=== PATIENT | female | born 1940 | race Caucasian/White ===

== ENCOUNTER 2017-05-31 12:58 | Observation (INO) ==
[2017-05-31 13:31] LABS: Basophils % 0.4 %; Eosinophils # 0.2 K/mcL (0.0-0.6); Eosinophils % 1.9 %; Hematocrit 38.8 % (35.3-44.9); Hemoglobin 13.2 g/dL (11.5-15.4); Immature Granulocytes % 0.4 % (0-4); Lymphocytes # 2.3 K/mcL (0.6-4.6); Lymphocytes % 29.2 %; Mean Corpuscular Volume 91.1 fL (83.0-100.0); Mean Platelet Volume 9.8 fL (9.4-12.4); Monocytes # 0.5 K/mcL (0.0-1.3); Monocytes % 6.8 %; Neutrophils # 4.8 K/mcL (1.6-8.9); Platelet Count 230 K/mcL (140-400); Red Blood Count 4.26 M/mcL (3.82-4.97); Segmented Neutrophils % 61.3 %
[2017-05-31 13:37] LABS: INR 0.9; Prothrombin Time 9.6 Seconds (9.4-12.1)
[2017-05-31 13:40] LABS: Activated Partial Thrombo Time 27.3 Seconds (26.0-36.0)
[2017-05-31 13:53] LABS: BUN/Creatinine Ratio 19 (6-26); Blood Urea Nitrogen 13 mg/dL (8-23); Calcium 9.6 mg/dL (8.6-10.3); Carbon Dioxide 33 mEq/L (23-29); Chloride 96 mEq/L (98-107); Glucose 124 mg/dL (70-105); Osmolality,Calculated 284 (280-300); Potassium 3.5 mEq/L (3.5-5.1); Sodium 136 mEq/L (136-145); eGFR For African Americans > 60 (> 60); eGFR For Non-African Americans > 60 (> 60)
[2017-05-31 13:54] LABS: Troponin I 0.03 ng/mL (< 0.04)
--- NOTE | 2017-05-31 19:49 | Emergency Department Note ---
Disposition Clinical Impression: Syncope Qualifiers: Encounter type: initial encounter TIA (transient ischemic attack) Qualifiers: Transient cerebral ischemia type: unspecified Qualified Code(s): G45.9 - Transient cerebral ischemic attack, unspecified Disposition: Admitted As Inpatient Condition: Good Time of Disposition: 21:18 General Adult HPI - General Chief complaint: ED Syncope Stated complaint: "passed out,dizzy" hx stroke same symptoms Time Seen by Provider: 05/31/17 19:41 Source: patient Mode of arrival: ambulatory Limitations: no limitations Nursing Notes Reviewed: Yes Vital Signs Reviewed: Yes - History of Present Illness HPI Narrative: Patient presents to the ED with the chief complaint of syncope. Patient reports that she was feeling well today and states that she has a very large living room. She got up from the chair to walk across living room and her legs went numb and she fell. She states that she does not long she was out but woke up and was still having bilateral lower extremity tingling and left arm numbness. She states that she has had a headache the last couple of days in her occiput and top of her head. No changes in vision. She states that she does have a history of a remote right-sided CVA and this felt similar to those symptoms. She states that she came in at that time and has been in the waiting room symptoms. Her symptoms are gone now, but she states that she will still get twinges of a headache. She is on antiplatelet medications. She also has a history of CHF. No fever, chills, chest pain, shortness of breath, abdominal pain, nausea, vomiting, diarrhea, cough or rash. Pain Scale: 0 - Related Data Home Medications Medication Instructions Recorded Confirmed Cholecalciferol (Vitamin D3) 1,000 unit PO DAILY 06/24/15 05/31/17 [Vitamin D3] Ranitidine HCl [Heartburn Relief] 150 mg PO BID 06/24/15 05/31/17 Metoprolol [Lopressor] 25 mg PO DAILY 04/22/16 05/31/17 Aspirin [Lo-Dose Aspirin EC] 81 mg PO DAILY 04/23/16 05/31/17 Ferrous Sulfate [Iron] 325 mg PO DAILY 05/31/17 05/31/17 Fluticasone Propionate Nasal 50 mcg NS DAILY PRN 05/31/17 05/31/17 [Flonase] Meclizine [Antivert] 12.5 mg PO TID PRN 05/31/17 05/31/17 hydroCHLOROthiazide 12.5 mg PO DAILY 05/31/17 05/31/17 [Hydrochlorothiazide] Allergies Allergy/AdvReac Type Severity Reaction Status Date / Time Amoxicillin AdvReac Hallucinati Verified 12/06/16 09:43 ng nitrofurantoin AdvReac Cramping Verified 09/05/16 12:09 of the Muscles pseudoephedrine AdvReac Cramping Verified 09/05/16 12:09 [From Sudafed] of the Muscles red dye AdvReac Hives Verified 09/05/16 12:09 Review of Systems: As reviewed in the HPI. All other systems reviewed are negative or normal. Constitutional: Reports: as per HPI Eyes: Reports: as per HPI ENT ED: Reports: as per HPI Past Medical History - Past Medical History Attestation: Yes The following information was validated with the patient. Source: patient Medical history: Reports: non-contributory Surgical history: Reports: cholecystectomy, herniorrhaphy, hysterectomy Psychiatric history: Reports: no psych history - Social History Smoking Status: Never smoker Smokeless Tobacco Status: No Alcohol use: Reports: none Drug use: Reports: none Physical Exam - General Limitations: no limitations General appearance: alert, in no apparent distress - Head Head exam: atraumatic, normocephalic, normal inspection - Eye Eye exam: Present: normal appearance, PERRL, EOMI, other (slight R sided ptosis she states has been there ) - Neck Neck exam: Present: normal inspection, full ROM, trachea midline. Absent: tenderness - Chest Chest inspection: Present: normal inspection, symmetric chest wall rise - Respiratory Respiratory exam: Present: normal lung sounds bilaterally - Cardiovascular Cardiovascular exam: Present: regular rate, normal rhythm, normal heart sounds - Abdominal Exam Abdominal exam: Present: soft, Non-Tender. Absent: tenderness, distention, guarding, rebound, rigidity - Extremities Exam Extremities exam: Present: normal inspection, full ROM, normal capillary refill. Absent: tenderness, pedal edema - Neurological Exam Neurological exam: Present: alert, oriented X3, CN II-XII intact - Expanded Neurological Exam Patient oriented to: Present: person, place, time Speech: Present: fluid speech Cranial nerves: EOM function (II, III, IV, ): Normal, facial sensation (V): Normal, facial palsy (VII): Normal, spinal accessory function (XI): Normal, tongue deviation (XII): Normal Cerebellar function: finger to nose: Normal Motor strength - LUE: 5/5 Motor strength - RUE: 5/5 Motor strength - LLE: 5/5 Motor strength - RLE: 5/5 Upper motor neuron exam: kip neglect: Absent bilaterally Sensory exam upper extremity: light touch: Abnormal Left (dull compared to R) Sensory exam lower extremity: light touch: Normal Coma Scale Eye Opening: Spontaneous Coma Scale Motor Response: Obeys Commands Coma Scale Verbal Response: Oriented Coma Scale Total: 15 - Psychiatric Psychiatric exam: Present: normal affect, normal mood - Skin Skin exam: Present: warm, dry, intact, normal color Course Course Narrative: Patient presenting with syncope and left arm numbness. Has a history of CVA. Symptom onset was 12 PM today, so she is well outside of the window for TPA. Her NIH is 1. She states that she does have some decreased sensation in that arm. At baseline, but is a little worse than usual. We will workup and admit. Her labs had already been completed in triage and she had an unchanged EKG, normal troponin. Her chest x-ray was unremarkable. We will add on a CT head and admit for MRI and further workup for CVA versus TIA. Patient agreeable with plan - Reevaluation(s) Reevaluation #1: Head CT is unremarkable. MRI is ordered due to her onset of symptoms. Patient admitted to the hospitalist service for further workup. Time: 21:17 Vital Signs Temperature 98.1 F 05/31/17 12:59 Pulse Rate 64 05/31/17 12:59 Respiratory Rate 18 05/31/17 12:59 Blood Pressure 138/71 05/31/17 12:59 O2 Sat by Pulse Oximetry 98 05/31/17 12:59 Temperature 98.1 F 05/31/17 12:59 Pulse Rate 70 05/31/17 22:28 Respiratory Rate 16 05/31/17 22:28 Blood Pressure 147/81 05/31/17 22:28 O2 Sat by Pulse Oximetry 98 05/31/17 12:59 Oxygen Delivery Oxygen Delivery Room Air Medical Decision Making - Medical Records Medical records reviewed: Yes I reviewed the patient's medical records. - Lab Data Lab results reviewed: Yes I reviewed the patient's lab results. Result diagrams: 05/31/17 13:13 05/31/17 13:13 Lab Results 05/31/17 05/31/17 05/31/17 Range/Units 13:13 13:13 13:13 WBC 7.9 (4.3-11.1) K/mcL RBC 4.26 (3.82-4.97) M/mcL Hgb 13.2 (11.5-15.4) g/dL Hct 38.8 (35.3-44.9) % MCV 91.1 (83.0-100.0) fL MCH 31.0 (28.0-33.3) pg MCHC 34.0 (31.6-35.5) g/dL RDW 14.0 (11.5-14.5) % Plt Count 230 (140-400) K/mcL MPV 9.8 (9.4-12.4) fL Immature Gran % 0.4 (0-4) % Seg Neutrophils % 61.3 % Lymphocytes % 29.2 % Monocytes % 6.8 % Eosinophils % 1.9 % Basophils % 0.4 % Neutrophils # 4.8 (1.6-8.9) K/mcL Lymphocytes # 2.3 (0.6-4.6) K/mcL Monocytes # 0.5 (0.0-1.3) K/mcL Eosinophils # 0.2 (0.0-0.6) K/mcL Basophils # 0.0 (0.0-0.2) K/mcL PT 9.6 (9.4-12.1) Seconds INR 0.9 APTT 27.3 (26.0-36.0) Seconds Sodium 136 (136-145) mEq/L Potassium 3.5 (3.5-5.1) mEq/L Chloride 96 L (98-107) mEq/L Carbon Dioxide 33 H (23-29) mEq/L BUN 13 (8-23) mg/dL Creatinine 0.70 (0.60-1.20) mg/dL Est GFR ( Amer) > 60 (> 60) Est GFR (Non-Af Amer) > 60 (> 60) BUN/Creatinine Ratio 19 (6-26) Glucose 124 H (70-105) mg/dL Calculated Osmolality 284 (280-300) Calcium 9.6 (8.6-10.3) mg/dL Troponin I 0.03 (< 0.04) ng/mL - Radiology Data Radiology results reviewed: Yes I reviewed the patient's radiology results. Chest X-Ray 05/31/17 13:03 IMPRESSION: 1. No acute radiographic abnormality in the chest. D/ / Andres Thomas MD / Andres Thomas MD Interpreting Provider: Andres Thomas MD Head CT 05/31/17 19:48 IMPRESSION: No acute abnormality detected. D/ / Oscar Odom MD / Oscar Odom MD Interpreting Provider: Oscar Odom MD Brain MRI 05/31/17 20:11 IMPRESSION: No acute infarct. Small right frontal convexity meningioma. D/ / Raymond Bangura MD / Raymond Bangura MD Interpreting Provider: Raymond Bangura MD
[2017-05-31] MEDS ORDERED: Aspirin 325 MG TABLET PO ONE (21:01)
--- NOTE | 2017-05-31 22:28 | Emergency Department Note ---
Disposition Clinical Impression: Syncope Qualifiers: Encounter type: initial encounter TIA (transient ischemic attack) Qualifiers: Transient cerebral ischemia type: unspecified Qualified Code(s): G45.9 - Transient cerebral ischemic attack, unspecified Disposition: Admitted As Inpatient Condition: Good General Adult HPI - General Chief complaint: ED Syncope Stated complaint: "passed out,dizzy" hx stroke same symptoms Time Seen by Provider: 05/31/17 19:41 Source: patient Mode of arrival: ambulatory Limitations: no limitations Nursing Notes Reviewed: Yes Vital Signs Reviewed: Yes - History of Present Illness Pain Scale: 0 - Related Data Home Medications Medication Instructions Recorded Confirmed Cholecalciferol (Vitamin D3) 1,000 unit PO DAILY 06/24/15 05/31/17 [Vitamin D3] Ranitidine HCl [Heartburn Relief] 150 mg PO BID 06/24/15 05/31/17 Metoprolol [Lopressor] 25 mg PO DAILY 04/22/16 05/31/17 Aspirin [Lo-Dose Aspirin EC] 81 mg PO DAILY 04/23/16 05/31/17 Ferrous Sulfate [Iron] 325 mg PO DAILY 05/31/17 05/31/17 Fluticasone Propionate Nasal 50 mcg NS DAILY PRN 05/31/17 05/31/17 [Flonase] Meclizine [Antivert] 12.5 mg PO TID PRN 05/31/17 05/31/17 hydroCHLOROthiazide 12.5 mg PO DAILY 05/31/17 05/31/17 [Hydrochlorothiazide] Allergies Allergy/AdvReac Type Severity Reaction Status Date / Time Amoxicillin AdvReac Hallucinati Verified 12/06/16 09:43 ng nitrofurantoin AdvReac Cramping Verified 09/05/16 12:09 of the Muscles pseudoephedrine AdvReac Cramping Verified 09/05/16 12:09 [From Sudafed] of the Muscles red dye AdvReac Hives Verified 09/05/16 12:09 Constitutional: Reports: as per HPI Eyes: Reports: as per HPI ENT ED: Reports: as per HPI Past Medical History - Past Medical History Medical history: Reports: non-contributory Surgical history: Reports: cholecystectomy, herniorrhaphy, hysterectomy Psychiatric history: Reports: no psych history - Social History Smoking Status: Never smoker Smokeless Tobacco Status: No Alcohol use: Reports: none Drug use: Reports: none Physical Exam - General Limitations: no limitations General appearance: alert, in no apparent distress Course Vital Signs Temperature 98.1 F 05/31/17 12:59 Pulse Rate 64 05/31/17 12:59 Respiratory Rate 18 05/31/17 12:59 Blood Pressure 138/71 05/31/17 12:59 O2 Sat by Pulse Oximetry 98 05/31/17 12:59 Temperature 98.1 F 05/31/17 12:59 Pulse Rate 64 05/31/17 12:59 Respiratory Rate 18 05/31/17 12:59 Blood Pressure 138/71 05/31/17 12:59 O2 Sat by Pulse Oximetry 98 05/31/17 12:59 Oxygen Delivery Oxygen Delivery Room Air Medical Decision Making - Lab Data Result diagrams: 05/31/17 13:13 05/31/17 13:13 Lab Results 05/31/17 05/31/17 05/31/17 Range/Units 13:13 13:13 13:13 WBC 7.9 (4.3-11.1) K/mcL RBC 4.26 (3.82-4.97) M/mcL Hgb 13.2 (11.5-15.4) g/dL Hct 38.8 (35.3-44.9) % MCV 91.1 (83.0-100.0) fL MCH 31.0 (28.0-33.3) pg MCHC 34.0 (31.6-35.5) g/dL RDW 14.0 (11.5-14.5) % Plt Count 230 (140-400) K/mcL MPV 9.8 (9.4-12.4) fL Immature Gran % 0.4 (0-4) % Seg Neutrophils % 61.3 % Lymphocytes % 29.2 % Monocytes % 6.8 % Eosinophils % 1.9 % Basophils % 0.4 % Neutrophils # 4.8 (1.6-8.9) K/mcL Lymphocytes # 2.3 (0.6-4.6) K/mcL Monocytes # 0.5 (0.0-1.3) K/mcL Eosinophils # 0.2 (0.0-0.6) K/mcL Basophils # 0.0 (0.0-0.2) K/mcL PT 9.6 (9.4-12.1) Seconds INR 0.9 APTT 27.3 (26.0-36.0) Seconds Sodium 136 (136-145) mEq/L Potassium 3.5 (3.5-5.1) mEq/L Chloride 96 L (98-107) mEq/L Carbon Dioxide 33 H (23-29) mEq/L BUN 13 (8-23) mg/dL Creatinine 0.70 (0.60-1.20) mg/dL Est GFR ( Amer) > 60 (> 60) Est GFR (Non-Af Amer) > 60 (> 60) BUN/Creatinine Ratio 19 (6-26) Glucose 124 H (70-105) mg/dL Calculated Osmolality 284 (280-300) Calcium 9.6 (8.6-10.3) mg/dL Troponin I 0.03 (< 0.04) ng/mL Attestation Statement - Attestation Attestation: I, Michael Newman MD, personally evaluated this patient and discussed their management with the resident physician. I reviewed the resident's note and agree with the documented findings, medical decision making, and plan of care. 76-year-old female presents to the emergency department with a complaint of dizziness and a syncopal episode which occurred about noon today. She states she has had the dizziness for a while and about noon when she walked across her living room she just had a flash and woke up in the floor. She denies any injury from the fall. She thinks she was only out for a few seconds. No chest pain or shortness of breath or palpitations associated with the episode. After she woke up she states that she just felt like her legs would not work right and they felt weak and numb. She rubbed them and they got better. This involved both lower extremities. No involvement of the upper extremities. She was able to get up on her own and ambulate. Patient reports that she had a stroke in the past with similar symptoms. On examination patient is a well-developed well-nourished well-appearing elderly female in no acute distress. She is alert and oriented 3. There is no cyanosis or diaphoresis. Breath sounds are clear and equal bilaterally. Heart regular rate and rhythm. Abdomen is soft and nontender with normal bowel sounds. No facial droop or asymmetry. Membership Counselor strength equal bilaterally. The weakness noted. She does complain of slight tingling in her left foot and states it feels a little different to palpation from the right foot. Labs reviewed and unremarkable. Chest x-ray negative. Head CT negative. MRI shows no acute infarct. Small right frontal meningioma. EKG shows a normal sinus rhythm with ventricular rate of 60. No acute ST segment elevation or depression. No arrhythmia or ectopy. The hospitalist, Dr. Dodd, was consulted and accepted admission of the patient.
[2017-05-31] MEDS ORDERED: Naloxone 0.4 MG/ML INJ IVP PRN (23:53)
[2017-06-01] MEDS ORDERED: Acetaminophen 325 MG TABLET PO PRN (00:01)
[2017-06-01] MEDS ORDERED: Fluticasone Propionate Nasal 50 MCG/SPRAY BOTTLE NS PRN (00:04)
--- NOTE | 2017-06-01 00:55 | Internal Med History&Physical ---
Date of Encounter: 05/31/17 Time of Encounter: 22:00 Internal Medicine - H&P: HPI Chief complaint: Syncope Admitted From: Home Plans for Post Hospital Care: Home History of present illness: Ms. Martínez is a 76 year old female present to ER for syncope. Her past medical history is significant for hypertension, diabetes on diet control only, CHF, history of CVA 4 years ago. Patient said she passed out around noon time, found herself on floor. Nobody witnessed the syncope. Patient denies tongue bite. Patient denies fecal or urinary incontinence. Patient denies any injury or any pain all around body. Patient denies chest pain or nausea vomiting. Patient denies weakness, numbness , tingling, or slurred speech. Patient has chronic dizziness for about 1 month. Patient denies similar syncope previously. Patient was admitted for syncope. Past Med Surg Social Fam HX - Past Medical History Medical history: hypertension Psychiatric history: no psych history - Past Surgical History Surgical History: cholecystectomy, herniorrhaphy, hysterectomy - Social History Smoking Status: Never smoker Smokeless Tobacco Status: No Alcohol use: none Drug use: none - Family History Mother Living Status: Hx Family Cardiac Disorders: Yes Father Brother Hx Family Cardiac Disorders: Yes (heart stents) Internal Medicine - H&P: Meds Cholecalciferol (Vitamin D3) [Vitamin D3] 1,000 unit PO DAILY 06/24/15 [History] Ranitidine HCl [Heartburn Relief] 150 mg PO BID 06/24/15 [History] Metoprolol [Lopressor] 25 mg PO DAILY 04/22/16 [History] Aspirin [Lo-Dose Aspirin EC] 81 mg PO DAILY 04/23/16 [History] Ferrous Sulfate [Iron] 325 mg PO DAILY 05/31/17 [History] Fluticasone Propionate Nasal [Flonase] 50 mcg NS DAILY PRN 05/31/17 [History] Meclizine [Antivert] 12.5 mg PO TID PRN 05/31/17 [History] hydroCHLOROthiazide [Hydrochlorothiazide] 12.5 mg PO DAILY 05/31/17 [History] 3 Allergy/AdvReac Type Severity Reaction Status Date / Time Amoxicillin AdvReac Hallucinati Verified 12/06/16 09:43 ng nitrofurantoin AdvReac Cramping Verified 09/05/16 12:09 of the Muscles pseudoephedrine AdvReac Cramping Verified 09/05/16 12:09 [From Sudafed] of the Muscles red dye AdvReac Hives Verified 09/05/16 12:09 All Systems PM: A 10-system review of systems was performed and is negative for pertinent findings except as documented above in the HPI. - Constitutional Vitals: Temp Pulse Resp BP Pulse Ox 98.4 F 64 15 134/53 96 05/31/17 23:41 05/31/17 23:41 05/31/17 23:41 05/31/17 23:41 05/31/17 23:41 General appearance: Present: A&O X 3, no acute distress, answers questions appropriately - Head Head exam: Present: atraumatic, normocephalic - Eye Eye exam: Present: PERRL, conjuntiva pink, sclera anicteric Pupils: Present: PERRL - Neck Neck exam general surgery: Present: supple, trachea midline. Absent: lymphadenopathy - Respiratory Respiratory exam: Present: CTAB. Absent: accessory muscle use, rales, rhonchi, wheezes - Cardiovascular Cardiovascular exam: Present: RRR, +S1, +S2. Absent: diastolic murmur, gallop, rubs, systolic murmur - GI/Abdominal GI/Abdominal exam: Present: normal bowel sounds, soft, no peritoneal signs. Absent: distended, tenderness - Extremities Exam Extremities exam: Present: warm, radial pulses palpable and symmetrical. Absent : calf tenderness, cyanotic, pedal edema - Neurological Exam Neurological exam: Present: CN II-XII intact, oriented X3, no focal deficits. Absent: pronater drift, facial droop, speech deficit - Skin Skin exam: Present: dry, intact Internal Med - H&P Results - Labs CBC & Chem 7: 05/31/17 13:13 05/31/17 13:13 - Assessment and plan (1) Meningioma Current Visit: Yes Status: Acute Assessment and plan: MRI brain shows meningioma. Review her old chart, she seems already have one 2 years ago. Will consult neurology for further management. (2) DVT prophylaxis Current Visit: Yes Status: Acute Assessment and plan: Heparin subcutaneously (3) Diabetes mellitus Current Visit: No Status: Acute Qualifiers: Diabetes mellitus type: type 2 Diabetes mellitus intermodal owner operator truck driver insulin use: without intermodal owner operator truck driver use Diabetes mellitus complication status: without complication Qualified Code(s): E11.9 - Type 2 diabetes mellitus without complications (4) HTN (hypertension) Current Visit: No Status: Acute Assessment and plan: Continue home medications Qualifiers: Hypertension type: essential hypertension Qualified Code(s): I10 - Essential (primary) hypertension (5) Syncope Current Visit: Yes Status: Acute Assessment and plan: Etiology is undetermined. Need to rule out cardio/neuro etiology. - Continuous cardiac monitoring to rule out arrhythmia - Echo and duplex carotid - Orthostatic vitals - Neurology consult as patient was found meningioma by MRI Qualifiers: Syncope type: unspecified Qualified Code(s): R55 - Syncope and collapse - Time Spent With Patient Total time spent is greater than 50% in coordination of care (as documented) at patient's floor/unit and/or counseling patient: 40 minutes Greater than 35 minutes
[2017-06-01] MEDS: *HR* Heparin 5,000 UNIT/ML VIAL SQ SCH ×2 (05:04→17:18)
[2017-06-01 07:04] LABS: Bilirubin,Urine Negative (Negative); Blood,Urine Trace (Negative); Clarity,Urine Cloudy (Clear); Color,Urine Yellow (Yellow); Glucose,Urine (UA) Normal (Normal); Ketones,Urine Negative (Negative); Leukocyte Esterase,Urine Large (Negative); Nitrite,Urine Positive (Negative); Protein,Urine Negative (Neg-Trace); Specific Gravity,Urine 1.008 (1.010-1.025); Urobilinogen,Urine Normal (Normal)
[2017-06-01 07:07] LABS: Bacteria,Urine Many per hpf (None-Few); Hyaline Casts,Urine None Seen per lpf (None-Few); Squamous Epithelial Cell,Urine Moderate per lpf (None-Few); WBC,Urine TNTC per hpf (0-3)
--- NOTE | 2017-06-01 07:17 | Electrocardiograph Report ---
[facility] [employer] Test Date: 2017-05-31 Pat Name: Shante Martínez Department: 104 Room: 2S3 Gender: F Trouble Lineman: TMTracie : 1940 Requested By: Hu Lynn Order Number: [id number] Reading MD: Fozia Montemayor Measurements Intervals Counselor Rate: 60 P: 43 ID: [id number] QRS: -21 QRSD: 97 T: 11 QT: 419 QTc: 420 Interpretive Statements SINUS RHYTHM BORDERLINE LEFT AXIS DEVIATION MODERATE VOLTAGE CRITERIA FOR LVH, CONSIDER NORMAL VARIANT Electronically Signed On 06-01-2017 7:16:36 EDT by Fozia Montemayor
[2017-06-01 08:06] LABS: Basophils % 0.4 %; Eosinophils # 0.2 K/mcL (0.0-0.6); Hematocrit 36.6 % (35.3-44.9); Hemoglobin 12.5 g/dL (11.5-15.4); Immature Granulocytes % 0.2 % (0-4); Immature Platelets 2.9 % (1.1-6.1); Lymphocytes # 1.6 K/mcL (0.6-4.6); Lymphocytes % 28.6 %; Mean Corpuscular HGB Conc 34.2 g/dL (31.6-35.5); Mean Corpuscular Hemoglobin 30.7 pg (28.0-33.3); Mean Corpuscular Volume 89.9 fL (83.0-100.0); Mean Platelet Volume 9.8 fL (9.4-12.4); Monocytes # 0.4 K/mcL (0.0-1.3); Monocytes % 7.1 %; Neutrophils # 3.4 K/mcL (1.6-8.9); Platelet Count 192 K/mcL (140-400); Red Blood Count 4.07 M/mcL (3.82-4.97); Segmented Neutrophils % 60.7 %
[2017-06-01 09:43] LABS: BUN/Creatinine Ratio 17 (6-26); Blood Urea Nitrogen 11 mg/dL (8-23); Calcium 9.3 mg/dL (8.6-10.3); Carbon Dioxide 30 mEq/L (23-29); Chloride 103 mEq/L (98-107); Glucose 110 mg/dL (70-105); Osmolality,Calculated 280 (280-300); Potassium 3.3 mEq/L (3.5-5.1); Sodium 135 mEq/L (136-145); eGFR For African Americans > 60 (> 60); eGFR For Non-African Americans > 60 (> 60)
[2017-06-01] MEDS: Famotidine 20 MG TABLET PO SCH ×2 (10:08→21:47)
[2017-06-01] MEDS: Aspirin Enteric Coated 81 MG Tablet PO SCH (10:08)
--- NOTE | 2017-06-01 14:17 | Internal Med Progress Note ---
Date of Encounter: 06/01/17 Time of Encounter: 02:15 - Assessment and plan (1) Syncope Current Visit: Yes Status: Acute Assessment and plan: Patient reports prior history of palpitations but denies any palpitations at the time of the event. Seizure is unlikely based on history. Stroke was ruled out with negative MRI. Although she has a frontal lobe meningioma this is likely unlikely to cause syncope. She does endorse prior history of heart failure but her echo in 2017 was normal. A nuclear stress test was performed in 2017 which was negative. We discussed the prognosis of this meningioma with neurology and they agreed that it is unlikely to cause this presentation. Overall, arrhythmia has not been ruled out. Vestibular disease is also possible especially with a reported dizziness. We will consult cardiac cardiology for their opinion and likely an outpatient Holter monitor. Neurology was already consulted. Qualifiers: Syncope type: unspecified Qualified Code(s): R55 - Syncope and collapse (2) Meningioma Current Visit: Yes Status: Acute Assessment and plan: We will follow with neurology outpatient (3) HTN (hypertension) Current Visit: No Status: Acute Assessment and plan: Continue home medications Qualifiers: Hypertension type: essential hypertension Qualified Code(s): I10 - Essential (primary) hypertension (4) Diabetes mellitus Current Visit: No Status: Acute Qualifiers: Diabetes mellitus type: type 2 Diabetes mellitus mcfp insulin use: without mcfp use Diabetes mellitus complication status: without complication Qualified Code(s): E11.9 - Type 2 diabetes mellitus without complications (5) DVT prophylaxis Current Visit: Yes Status: Acute - Time Spent With Patient Total time spent is greater than 50% in coordination of care (as documented) at patient's floor/unit and/or counseling patient: 25 - 35 minutes - Subjective Interval history: Patient reports dizziness on moving her head but no other focal neurological complaints. No interval ligaments noted since admission. No interval events on telemetry. - Constitutional Vitals: Temp Pulse Resp BP Pulse Ox 97.4 F L 73 17 121/57 100 06/01/17 10:35 06/01/17 10:35 06/01/17 10:35 06/01/17 10:35 06/01/17 10:35 General appearance: Present: A&O X 3, no acute distress, answers questions appropriately Exam: Physical exam Gen: Comfortable, laying in bed, in no visible distress HEENT: Normocephalic, atraumatic. No conjunctival icterus. Moist oral mucosa. Neck: Supple Lungs: Clear to auscultation, no foreign sounds Heart: Normal S1-S2, no murmurs rubs or gallops Abdomen: Normoactive bowel sounds, no guarding rigidity or tenderness Extremities: No edema clubbing or cyanosis Neuro: Alert oriented 3, no focal deficits. Extraocular movements are intact. Prince of vision are intact. No motor or sensory deficits. Negative finger- nose test. Gait was not tested. Skin: No skin lesions Internal Medicine: Result - Labs CBC & Chem 7: 06/01/17 07:26 06/01/17 07:26 Labs: Short CBC 06/01/17 Range/Units 07:26 WBC 5.6 (4.3-11.1) K/mcL Hgb 12.5 (11.5-15.4) g/dL Hct 36.6 (35.3-44.9) % Plt Count 192 (140-400) K/mcL Neutrophils # 3.4 (1.6-8.9) K/mcL BMP 06/01/17 07:26 Sodium 135 L Potassium 3.3 L Chloride 103 Carbon Dioxide 30 H BUN 11 Creatinine 0.65 Glucose 110 H Calcium 9.3 Urine 06/01/17 Range/Units 06:40 Urine Color Yellow (Yellow) Urine Clarity Cloudy A (Clear) Urine pH 7.0 (5.0-8.0) pH Units Ur Specific [place] 1.008 L (1.010-1.025) Urine Protein Negative (Neg-Trace) mg/dL Urine Glucose (UA) Normal (Normal) mg/dL - ABG Interpretation ABG results: PT/INR, D-dimer PT 9.6 Seconds (9.4-12.1) 05/31/17 13:13 Consult Discharge Plan - Plan Referrals: Erinn Dailey, [employer]ANCH MANAGER TRAINEE [Primary Care Provider] -
[2017-06-01] MEDS: hydroCHLOROthiazide 25 MG TABLET PO SCH (15:59)
[2017-06-01] MEDS: Cholecalciferol (D-3) 1,000 UNIT TABLET PO SCH (16:00)
[2017-06-02] MEDS: *HR* Heparin 5,000 UNIT/ML VIAL SQ SCH (05:33)
[2017-06-02] MEDS: Aspirin Enteric Coated 81 MG Tablet PO SCH (08:14)
[2017-06-02] MEDS: Cholecalciferol (D-3) 1,000 UNIT TABLET PO SCH (08:14)
[2017-06-02] MEDS: hydroCHLOROthiazide 25 MG TABLET PO SCH (08:14)
[2017-06-02] MEDS: Famotidine 20 MG TABLET PO SCH (08:14)
--- NOTE | 2017-06-02 11:12 | Neurology - Consult Note ---
Date of Encounter: 06/09/17 Time of Encounter: 11:09 Assessment and Plan (1) Syncope Status: Acute Patient seems to have an episode of cardiogenic syncope though seizures are in the differential but description does not seem to be typical off a seizure especially no postictal states she seemed to be back to her baseline now no focal deficit on examination strongly recommend cardiac workup and cardiogenic Cause of the syncope especially for any cardiac dysrhythmia. Though we could do an EEG but does not think that will be helpful in this case also suggested check carotid and vertebrals for any critical stenosis. Would not recommend starting on any antiepileptic medication at this time in particularly no evidence of seizure. Also suggested check for other metabolic and infectious etiologies at this age group simple infections like UTI could have a similar presentation. 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 Likely a meningioma. Seems to be quite a small and does not causing any mass effect or any edema around it. Likely incidental finding do not think that it is a reason for her syncopal episode though at times meningioma can cause increase in the seizures but this seems to be too small and also in the posterior fossa regardless recommend radiological follow-up in about a year with repeat imaging studies patient could be follow-up in neurology clinic afterwards At this time does not require any intervention . History of Present Illness HPI: Ms. Martínez is a 76 year old female admitted via ER for syncope. 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 Nobody witnessed the episode, denies any jerking and shaking, any tongue bite, or incontinence, denies any injury or any pain in the body. no focla motor weakness, numbness, tingling, or slurred speech. Patient has dizziness for about 1 month. Patient denies similar syncope previously. Patient was admitted for syncope, during the workup she had an MRI of the brain that did not show any acute abnormality but did show an evidence of a small meningioma neurology service consulted for meningioma as well as for syncope. Patient seems to be back to her baseline now Past Med Surg Social Fam HX - Past Medical History Medical history: hypertension Psychiatric history: no psych history - Past Surgical History Surgical History: cholecystectomy, herniorrhaphy, hysterectomy - Social History Smoking Status: Never smoker Smokeless Tobacco Status: No Alcohol use: none Drug use: none - Family History Mother Living Status: Hx Family Cardiac Disorders: Yes Father Brother Hx Family Cardiac Disorders: Yes (heart stents) Medications and Allergies Cholecalciferol (Vitamin D3) [Vitamin D3] 1,000 unit PO DAILY 06/24/15 [History] Ranitidine HCl [Heartburn Relief] 150 mg PO BID 06/24/15 [History] Metoprolol [Lopressor] 25 mg PO DAILY 04/22/16 [History] Aspirin [Lo-Dose Aspirin EC] 81 mg PO DAILY 04/23/16 [History] Ferrous Sulfate [Iron] 325 mg PO DAILY 05/31/17 [History] Fluticasone Propionate Nasal [Flonase] 50 mcg NS DAILY PRN 05/31/17 [History] Meclizine [Antivert] 12.5 mg PO TID PRN 05/31/17 [History] hydroCHLOROthiazide [Hydrochlorothiazide] 12.5 mg PO DAILY 05/31/17 [History] 3 Allergy/AdvReac Type Severity Reaction Status Date / Time Amoxicillin AdvReac Hallucinati Verified 12/06/16 09:43 ng nitrofurantoin AdvReac Cramping Verified 09/05/16 12:09 of the Muscles pseudoephedrine AdvReac Cramping Verified 09/05/16 12:09 [From Sudafed] of the Muscles red dye AdvReac Hives Verified 09/05/16 12:09 All Systems: The remainder of the systems were reviewed and are negative Physical Examination - Vital Signs Vital Signs: Initial Vital Signs Temp Pulse Resp BP Pulse Ox 98.1 F 64 18 138/71 98 05/31/17 12:59 05/31/17 12:59 05/31/17 12:59 05/31/17 12:59 05/31/17 12:59 - Exam Exam: GENERAL: Comfortable in no acute distress HEENT: Normal LUNGS: CTA HEART: RRR, S1 S2 Audible, no murmur EXTREMITIES: No Pedal edema. DETAILED NEUROLOGICAL EXAMINATION: MENTAL STATUS: Oriented to person, place, date and situation. Memory: knows the President, Aware of recent events Recent Memory Intact Cranial Nerve Examination: CN - II: Visual Acuity, Field of Vision Normal, Fundus examination: No disk edema, Pupils- size shape reaction to light and accommodation: All normal. CN III, IV, : External ocular movements were intact, Pupils were reactive, Nodrooping of the eyelids CN V: Sensation over the face to light touch and pinprick all normal. Corneal reflexes not tested, jaw jerk normal. CN VII: No facial asymmetry, no flattening of nasolabial folds, no difficulty in closing the eyes, no loss of forehead wrinkles, no difficulty in eye-closure, frowning raising eyebrows. CNVIII: No significant hearing loss CN IX, X: Uvula centralized not deviated, Gag reflex: Not tested CN X1: Sternocleidomastoid, trapezius, normal or evidence of any weakness. CN X11: No Dysarthria, no wasting or fibrilation f tongue muscles, no deviation, tongue muscle strength normal. Motor examination: No hypertrophy, tone was normal, power grade 0-5 Upper limbs Proximal- No difficulty in lifting the arms above the head. Distal- Noweakness in distal muscles On formal testing 5/5 all over Lower limbs Proximal- No difficulty in getting up from the sitting position Distal- No difficulty in walking On formal testing 5/5 all over Coordination: [id number] normal. Target pursuit normal finger tapping normal, Rapid alternating moment of wrist normal Sensory system: Superficial sensations- Touch normal. Pain- Pinprick, Temperature all normal, Deep sensation normal, Joint position sense normal. Cortical sensation, Tactile discrimination, localization and extinction all normal. Deep tendon reflexes. Symmetrical bilateral, No evidence of Babinski. No sign of meningeal irritation Gait Examination: Deferred Results - Laboratory Findings CBC and BMP: 06/01/17 07:26 06/01/17 07:26 Abnormal lab findings: Abnormal lab results Sodium 135 mEq/L (136-145) L 06/01/17 07:26 Potassium 3.3 mEq/L (3.5-5.1) L 06/01/17 07:26 Carbon Dioxide 30 mEq/L (23-29) H 06/01/17 07:26 Glucose 110 mg/dL (70-105) H 06/01/17 07:26 POC Glucose 156 mg/dL (70-99) H 06/01/17 19:24 Troponin I 0.04 ng/mL (< 0.04) H* 06/01/17 15:42 Urine Clarity Cloudy (Clear) A 06/01/17 06:40 Ur Specific [place] 1.008 (1.010-1.025) L 06/01/17 06:40 Urine Blood Trace (Negative) H 06/01/17 06:40 Urine Nitrite Positive (Negative) A 06/01/17 06:40 Ur Leukocyte Esterase Large (Negative) H 06/01/17 06:40 Urine Microscopic RBC 3-5 per hpf (0-3) H 06/01/17 06:40 Urine Microscopic WBC TNTC per hpf (0-3) H 06/01/17 06:40 Ur Squamous Epith Cells Moderate per lpf (None-Few) H 06/01/17 06:40 Urine Bacteria Many per hpf (None-Few) H 06/01/17 06:40 Ur Culture Indicated? YES (NO) A 06/01/17 06:40 - Diagnostic Findings US - pelvic: pending Additional findings: MRI of the brain shows A small extra-axial mass over the right frontal convexity measuring up to 12.5 mm in diameter , likely a meningioma. Consult Discharge Plan - Plan Instructions: Transient Ischemic Attack (DC), Syncope (DC) Additional Instructions: Please follow-up with your seaming inspector, i.e. Dr. Vaughn within the next 1-2 weeks. Please follow with your primary care provider within the next 2 weeks. If symptoms recur, reported to the emergency room immediately and call 911. Referrals: Erinn Dailey CNP [Primary Care Provider] - (An appointment has been requested. The office will contact you at home to schedule appointment. ) Marquis Vaughn MD [Partnered Physician] - (An appointment has been requested. The office will contact you at home to schedule your appointment. ) Vaibhav Mendez MD [Partnered Physician] - 06/13/17 3:30 pm
[2017-06-02 11:47] VITALS: BP 142/77
--- NOTE | 2017-06-02 12:24 | Discharge Summary ---
- NOTES TO OUTPATIENT PROVIDER Notes to Outpatient Provider: Follow-up with Dr. Vaughn within 2 weeks of discharge Orders not resulted at time of discharge: Pending orders 06/01/17 06:40 Culture,Urine [RM] Stat 06/02/17 12:14 Troponin I Stat ECG 12 lead ECG [ECG] Stat 06/03/17 04:00 BMP [Basic Metabolic Panel] AM 0400 CBC [Complete Blood Count] [HEME] AM 0400 Date of Encounter: 06/02/17 Time of Encounter: 12:20 - Discharge Diagnosis (1) Syncope Priority: Primary Status: Acute Comments: Suspect cardiovascular etiology. During this admission including EKG and troponin, CT head, MRI did not reveal a cause of syncope. An echo was performed with results pending. Incidental note of frontal lobe meningioma was made on the MRI which is too small to cause this presentation. Neurology agrees. There is no history suggestive of seizures. She will follow-up with Dr. Vaughn her outpatient user experience team lead for a Holter study. Qualifiers: Qualified Code(s): R55 - Syncope and collapse (2) Meningioma Priority: Secondary Status: Acute Comments: Repeat MRI in 1 year (3) HTN (hypertension) Priority: Secondary Status: Chronic Qualifiers: Hypertension type: essential hypertension Qualified Code(s): I10 - Essential (primary) hypertension (4) Diabetes mellitus Priority: Secondary Status: Chronic Qualifiers: Diabetes mellitus type: type 2 Diabetes mellitus residential insulin use: without residential use Diabetes mellitus complication status: without complication Qualified Code(s): E11.9 - Type 2 diabetes mellitus without complications Hospital course: Ms. Martínez is a 76 year old female Discharge discussed with: patient - Time Spent with Patient Total time spent providing and/or coordinating discharge services: Greater than 30 minutes - Discharge Medications Home Medications: Cholecalciferol (Vitamin D3) [Vitamin D3] 1,000 unit PO DAILY 06/24/15 [History] Ranitidine HCl [Heartburn Relief] 150 mg PO BID 06/24/15 [History] Metoprolol [Lopressor] 25 mg PO DAILY 04/22/16 [History] Aspirin [Lo-Dose Aspirin EC] 81 mg PO DAILY 04/23/16 [History] Ferrous Sulfate [Iron] 325 mg PO DAILY 05/31/17 [History] Fluticasone Propionate Nasal [Flonase] 50 mcg NS DAILY PRN 05/31/17 [History] Meclizine [Antivert] 12.5 mg PO TID PRN 05/31/17 [History] hydroCHLOROthiazide [Hydrochlorothiazide] 12.5 mg PO DAILY 05/31/17 [History] Allergies/Adverse Reactions: 3 Allergy/AdvReac Type Severity Reaction Status Date / Time Amoxicillin AdvReac Hallucinati Verified 12/06/16 09:43 ng nitrofurantoin AdvReac Cramping Verified 09/05/16 12:09 of the Muscles pseudoephedrine AdvReac Cramping Verified 09/05/16 12:09 [From Sudafed] of the Muscles red dye AdvReac Hives Verified 09/05/16 12:09 Date of admission: 05/31/17 22:11 Primary care physician: Erinn Dailey CNP Consults: 06/01/17 00:05 Consult to Neurology [CONS] Routine Consulting Provider: [facility] Reason for Consult: Dizziness, syncope, MRI shows meningioma Call Completed: No 06/01/17 14:26 Consult to Cardiology [CONS] Routine Comment: Consulting Provider: [facility] Reason for Consult: Syncope at home Call Completed: No Discharging clinician: Shira Barr Anticipated date of discharge: 06/02/17 - Constitutional Vitals: Temp Pulse Resp BP Pulse Ox 98.0 F 74 16 142/77 95 06/02/17 11:43 06/02/17 11:43 06/02/17 11:43 06/02/17 11:43 06/02/17 11:43 General appearance: Present: A&O X 3, no acute distress, answers questions appropriately Exam: Gen: Comfortable, laying in bed, in no visible distress HEENT: Normocephalic, atraumatic. No conjunctival icterus. Moist oral mucosa. Neck: Supple Lungs: Clear to auscultation, no foreign sounds Heart: Normal S1-S2, no murmurs rubs or gallops Abdomen: Normoactive bowel sounds, no guarding rigidity or tenderness Extremities: No edema clubbing or cyanosis Neuro: Alert oriented 3, no focal deficits. Extraocular movements are intact. Prince of vision are intact. No motor or sensory deficits. Negative finger- nose test. Gait was not tested. Skin: No skin lesions - Patient Status Disposition: Home, Self-Care Functional capacity at discharge: independent ambulation Overall status at discharge: patient is back to baseline - Discharge Instructions Follow Up With: Erinn Dailey, ENVIRONMENTAL SERVICES SUPERVISOR [Primary Care Provider] - Additional Instructions: Please follow-up with your user experience team lead, i.e. Dr. Vaughn within the next 1-2 weeks. Please follow with your primary care provider within the next 2 weeks. If symptoms recur, reported to the emergency room immediately and call 911. - Diet and Activity Activity: resume usual activities as tolerated Diet: advance to your usual diet
== END 2017-06-02 14:15 | disposition home or self-care (01) ==
LOC: EMEROO 12:58 → 2SOUTHHOLD 12:58 → 3BNU 06-01 18:44
PROVIDERS: ADMIT Internal Medicine; ATTEND Registered Nurse

== ENCOUNTER 2019-06-08 17:35 | Observation (INO) ==
[2019-06-08 18:04] LABS: Prothrombin Time 11.8 Seconds (9.4-12.1)
[2019-06-08 18:06] LABS: Basophils % 0.5 %; Eosinophils # 0.1 K/mcL (0.0-0.6); Eosinophils % 1.2 %; Hematocrit 39.3 % (35.3-44.9); Hemoglobin 13.3 g/dL (11.5-15.4); Immature Granulocytes % 0.3 % (0-4); Lymphocytes # 1.7 K/mcL (0.6-4.6); Lymphocytes % 25.3 %; Mean Corpuscular HGB Conc 33.8 g/dL (31.6-35.5); Mean Corpuscular Volume 94.7 fL (83.0-100.0); Monocytes # 0.4 K/mcL (0.0-1.3); Monocytes % 6.1 %; Neutrophils # 4.4 K/mcL (1.6-8.9); Platelet Count 220 K/mcL (140-400); Red Blood Count 4.15 M/mcL (3.82-4.97); Red Cell Distribution Width 13.3 % (11.5-14.5); Segmented Neutrophils % 66.6 %; White Blood Count 6.6 K/mcL (4.3-11.1)
[2019-06-08 18:22] LABS: Troponin I < 0.03 ng/mL (< 0.04)
[2019-06-08 18:23] LABS: Alanine Aminotransferase 15 Units/L (7-52); Albumin 4.3 g/dL (3.5-5.7); Albumin/Globulin Ratio 1.6 (1.1-2.2); Alkaline Phosphatase 75 Units/L (34-104); Aspartate Amino Transferase 17 Units/L (13-39); BUN/Creatinine Ratio 23 (6-26); Bilirubin,Direct 0.1 mg/dL (0.0-0.2); Bilirubin,Indirect 0.5 mg/dL (0.0-1.0); Bilirubin,Total 0.6 mg/dL (0.3-1.0); Blood Urea Nitrogen 20 mg/dL (8-23); Calcium 9.9 mg/dL (8.6-10.3); Carbon Dioxide 28 mEq/L (23-29); Chloride 96 mEq/L (98-107); Globulin 2.7 g/dL (2.4-3.5); Glucose 262 mg/dL (70-105); Magnesium 1.7 mg/dL (1.6-2.6); Osmolality,Calculated 288 (280-300); Potassium 3.4 mEq/L (3.5-5.1); Sodium 133 mEq/L (136-145); eGFR For African Americans > 60 (> 60); eGFR For Non-African Americans > 60 (> 60)
[2019-06-08] MEDS ORDERED: Aspirin 81 MG TAB.CHEW PO ONE (19:27)
[2019-06-08] MEDS ORDERED: Naloxone 0.4 MG/ML INJ IVP PRN (19:36)
[2019-06-08 20:03] LABS: Bacteria,Urine Many per hpf (None-Few); Bilirubin,Urine Negative (Negative); Blood,Urine Trace (Negative); Clarity,Urine Cloudy (Clear); Color,Urine Yellow (Yellow); Glucose,Urine (UA) 100 mg/dL (Normal); Hyaline Casts,Urine None Seen per lpf (None-Few); Ketones,Urine Negative (Negative); Leukocyte Esterase,Urine Large (Negative); Nitrite,Urine Positive (Negative); Protein,Urine Negative (Neg-Trace); RBC,Urine 0-3 per hpf (0-3); Specific Gravity,Urine 1.011 (1.010-1.025); Squamous Epithelial Cell,Urine None Seen per lpf (None-Few); Urobilinogen,Urine Normal (Normal); WBC,Urine TNTC per hpf (0-3)
[2019-06-09] MEDS ORDERED: Acetaminophen 325 MG TABLET PO ONE (00:24)
[2019-06-09 01:11] LABS: Basophils % 0.3 %; Eosinophils # 0.2 K/mcL (0.0-0.6); Eosinophils % 2.5 %; Hematocrit 38.2 % (35.3-44.9); Hemoglobin 12.9 g/dL (11.5-15.4); Immature Granulocytes % 0.3 % (0-4); Lymphocytes # 2.6 K/mcL (0.6-4.6); Lymphocytes % 35.8 %; Mean Corpuscular HGB Conc 33.8 g/dL (31.6-35.5); Mean Corpuscular Hemoglobin 32.3 pg (28.0-33.3); Mean Corpuscular Volume 95.5 fL (83.0-100.0); Mean Platelet Volume 10.2 fL (9.4-12.4); Monocytes # 0.5 K/mcL (0.0-1.3); Monocytes % 7.1 %; Neutrophils # 3.9 K/mcL (1.6-8.9); Platelet Count 215 K/mcL (140-400); Red Cell Distribution Width 13.2 % (11.5-14.5); White Blood Count 7.2 K/mcL (4.3-11.1)
[2019-06-09 01:28] LABS: BUN/Creatinine Ratio 19 (6-26); Blood Urea Nitrogen 20 mg/dL (8-23); Calcium 9.5 mg/dL (8.6-10.3); Carbon Dioxide 29 mEq/L (23-29); Chloride 97 mEq/L (98-107); Glucose 229 mg/dL (70-105); Osmolality,Calculated 288 (280-300); Potassium 3.1 mEq/L (3.5-5.1); Sodium 134 mEq/L (136-145); eGFR For African Americans > 60 (> 60); eGFR For Non-African Americans 50 (> 60)
[2019-06-09 06:41] VITALS: BP 93/57
[2019-06-09] MEDS ORDERED: Dextrose Gel 15 GM/37.5 ML TUBE PO PRN ×2 (08:14)
[2019-06-09] MEDS ORDERED: *HR* Dextrose 50 % in Water (Syg) 50 ML SYRINGE IVP PRN (08:14)
[2019-06-09] MEDS ORDERED: D5% in Water 1,000 ML IVC PRN (08:14)
[2019-06-09 08:53] LABS: Estimated Average Glucose 148 mg/dl
[2019-06-09] MEDS ORDERED: cefTRIAXone 1,000 MG in 0.9 % Sodium Chloride Mini Bag 100 ML IVPB SCH (09:00)
[2019-06-09] MEDS ORDERED: Aspirin Enteric Coated 81 MG Tablet PO SCH (09:00)
[2019-06-09] MEDS ORDERED: Insulin LISPRO 300 UNITS/3 ML VIAL SQ SCH ×2 (11:30→21:00)
[2019-06-09] MEDS ORDERED: *HR* Heparin 5,000 UNIT/ML VIAL SQ SCH (18:00)
== END 2019-06-09 11:01 | disposition home or self-care (01) ==
LOC: 3BNU 17:35 → EMEROOARM 17:35 → 3BNU 20:28
PROVIDERS: ADMIT Internal Medicine; ATTEND Internal Medicine

== ENCOUNTER 2019-08-26 14:39 | Observation (INO) ==
[2019-08-26 15:49] LABS: Basophils % 0.1 %; Eosinophils # 0.1 K/mcL (0.0-0.6); Eosinophils % 0.7 %; Hematocrit 38.5 % (35.3-44.9); Hemoglobin 12.9 g/dL (11.5-15.4); Immature Granulocytes % 0.4 % (0-4); Lymphocytes # 1.9 K/mcL (0.6-4.6); Lymphocytes % 23.1 %; Mean Corpuscular HGB Conc 33.5 g/dL (31.6-35.5); Mean Corpuscular Hemoglobin 31.9 pg (28.0-33.3); Mean Corpuscular Volume 95.3 fL (83.0-100.0); Mean Platelet Volume 9.6 fL (9.4-12.4); Monocytes # 0.5 K/mcL (0.0-1.3); Monocytes % 5.7 %; Neutrophils # 5.7 K/mcL (1.6-8.9); Platelet Count 196 K/mcL (140-400); Red Blood Count 4.04 M/mcL (3.82-4.97); Red Cell Distribution Width 13.5 % (11.5-14.5); White Blood Count 8.1 K/mcL (4.3-11.1)
[2019-08-26 15:54] LABS: Prothrombin Time 11.5 Seconds (9.4-12.1)
[2019-08-26 15:57] LABS: Activated Partial Thrombo Time 29.1 Seconds (26.0-36.0)
[2019-08-26 16:10] LABS: Alanine Aminotransferase 14 Units/L (7-52); Albumin 3.9 g/dL (3.5-5.7); Albumin/Globulin Ratio 1.4 (1.1-2.2); Alkaline Phosphatase 69 Units/L (34-104); Aspartate Amino Transferase 12 Units/L (13-39); BUN/Creatinine Ratio 15 (6-26); Bilirubin,Direct 0.1 mg/dL (0.0-0.2); Bilirubin,Indirect 0.6 mg/dL (0.0-1.0); Bilirubin,Total 0.7 mg/dL (0.3-1.0); Blood Urea Nitrogen 13 mg/dL (8-23); Calcium 9.2 mg/dL (8.6-10.3); Carbon Dioxide 29 mEq/L (23-29); Chloride 101 mEq/L (98-107); Globulin 2.7 g/dL (2.4-3.5); Glucose 178 mg/dL (70-105); Osmolality,Calculated 287 (280-300); Potassium 4.1 mEq/L (3.5-5.1); Sodium 136 mEq/L (136-145); Total Protein 6.6 g/dL (6.4-8.9); Troponin I 0.03 ng/mL (< 0.04); eGFR For African Americans > 60 (> 60); eGFR For Non-African Americans > 60 (> 60)
[2019-08-26 16:24] LABS: Thyroid Stimulating Hormone 1.123 mcIU/mL (0.340-5.600)
[2019-08-26] MEDS: DilTIAZem 50 MG/50 ML IV.SOLN IVC SCH ×2 (16:40→23:08)
[2019-08-26] MEDS ORDERED: Naloxone 0.4 MG/ML INJ IVP PRN (17:58)
[2019-08-26] MEDS ORDERED: *HR* Dextrose 50 % in Water (Vial) 50 ML VIAL IVP PRN (18:55)
[2019-08-26] MEDS ORDERED: D5% in Water 1,000 ML IVC PRN (18:55)
[2019-08-26] MEDS ORDERED: Dextrose Gel 15 GM/37.5 ML TUBE PO PRN ×2 (18:55)
[2019-08-26 19:47] LABS: Estimated Average Glucose 143 mg/dl
[2019-08-26] MEDS: Pantoprazole 40 MG VIAL IVP SCH (21:19)
[2019-08-26] MEDS: Insulin LISPRO 300 UNITS/3 ML VIAL SQ SCH (21:20)
[2019-08-27 06:44] LABS: Basophils % 0.2 %; Eosinophils # 0.1 K/mcL (0.0-0.6); Eosinophils % 2.1 %; Hematocrit 36.1 % (35.3-44.9); Hemoglobin 12.1 g/dL (11.5-15.4); Immature Granulocytes % 0.2 % (0-4); Lymphocytes % 32.5 %; Mean Corpuscular HGB Conc 33.5 g/dL (31.6-35.5); Mean Corpuscular Hemoglobin 32.9 pg (28.0-33.3); Mean Corpuscular Volume 98.1 fL (83.0-100.0); Mean Platelet Volume 9.9 fL (9.4-12.4); Monocytes # 0.4 K/mcL (0.0-1.3); Monocytes % 6.9 %; Neutrophils # 3.6 K/mcL (1.6-8.9); Platelet Count 190 K/mcL (140-400); Red Blood Count 3.68 M/mcL (3.82-4.97); Red Cell Distribution Width 13.5 % (11.5-14.5); Segmented Neutrophils % 58.1 %; White Blood Count 6.3 K/mcL (4.3-11.1)
[2019-08-27 07:04] LABS: BUN/Creatinine Ratio 21 (6-26); Blood Urea Nitrogen 16 mg/dL (8-23); Calcium 8.7 mg/dL (8.6-10.3); Carbon Dioxide 28 mEq/L (23-29); Chloride 107 mEq/L (98-107); Glucose 137 mg/dL (70-105); Osmolality,Calculated 293 (280-300); Potassium 3.6 mEq/L (3.5-5.1); Sodium 140 mEq/L (136-145); eGFR For African Americans > 60 (> 60); eGFR For Non-African Americans > 60 (> 60)
[2019-08-27] MEDS: Insulin LISPRO 300 UNITS/3 ML VIAL SQ SCH ×4 (08:18→21:26)
[2019-08-27] MEDS: Aspirin Enteric Coated 81 MG Tablet PO SCH (10:02)
[2019-08-27] MEDS: Pantoprazole 40 MG VIAL IVP SCH (10:02)
[2019-08-27] MEDS ORDERED: Perflutren Lipid Microsphere 1.3 ML in 0.9 % Sodium Chloride 8.7 ML IVP PRN (11:40)
[2019-08-27] MEDS ORDERED: Fluticasone Propionate Nasal 50 MCG/SPRAY BOTTLE NS PRN (14:42)
[2019-08-27] MEDS ORDERED: *HR* LORazepam 0.5 MG TABLET PO PRN (14:42)
[2019-08-27] MEDS ORDERED: Nystatin POWDER 30 GM BOTTLE TP PRN (14:42)
[2019-08-27] MEDS ORDERED: Sennosides/Docusate Sodium TABLET PO PRN (15:43)
[2019-08-27] MEDS: Apixaban 5 MG TABLET PO SCH (21:25)
[2019-08-28] MEDS: Apixaban 5 MG TABLET PO SCH (08:50)
[2019-08-28] MEDS: Aspirin Enteric Coated 81 MG Tablet PO SCH (08:50)
[2019-08-28] MEDS: Insulin LISPRO 300 UNITS/3 ML VIAL SQ SCH ×2 (08:51→11:38)
[2019-08-28] MEDS ORDERED: Lactobacillus 1 EACH CAP.SPRINK PO SCH (09:00)
[2019-08-28 11:07] VITALS: BP 114/71
[2019-08-28 11:58] LABS: Hematocrit 39.5 % (35.3-44.9); Hemoglobin 12.7 g/dL (11.5-15.4); Mean Corpuscular HGB Conc 32.2 g/dL (31.6-35.5); Mean Corpuscular Hemoglobin 31.9 pg (28.0-33.3); Mean Corpuscular Volume 99.2 fL (83.0-100.0); Mean Platelet Volume 10.3 fL (9.4-12.4); Platelet Count 221 K/mcL (140-400); Red Blood Count 3.98 M/mcL (3.82-4.97); Red Cell Distribution Width 13.3 % (11.5-14.5); White Blood Count 6.7 K/mcL (4.3-11.1)
== END 2019-08-28 14:06 | disposition home or self-care (01) ==
LOC: 2ANU 14:39 → EMEROOARM 14:39 → 2ANU 20:25
PROVIDERS: ADMIT Family Medicine; ATTEND Family Medicine

== ENCOUNTER 2019-12-07 12:26 | Inpatient (IN) ==
[2019-12-07] MEDS ORDERED: 0.9 % Sodium Chloride 1,000 ML IVC ONE ×2 (13:01→14:25)
[2019-12-07] MEDS ORDERED: Isovue-370 500 ML BOTTLE IVP ONE (13:32)
[2019-12-07 13:33] LABS: INR 1.6; Prothrombin Time 17.8 Seconds (9.4-12.1)
[2019-12-07 13:36] LABS: Activated Partial Thrombo Time 27.9 Seconds (26.0-36.0)
[2019-12-07 13:39] LABS: Basophils % 0.5 %; Eosinophils # 0.1 K/mcL (0.0-0.6); Eosinophils % 1.4 %; Hematocrit 42.3 % (35.3-44.9); Hemoglobin 13.9 g/dL (11.5-15.4); Immature Granulocytes % 0.3 % (0-4); Lymphocytes # 0.8 K/mcL (0.6-4.6); Lymphocytes % 12.1 %; Mean Corpuscular HGB Conc 32.9 g/dL (31.6-35.5); Mean Corpuscular Hemoglobin 32.3 pg (28.0-33.3); Mean Corpuscular Volume 98.4 fL (83.0-100.0); Mean Platelet Volume 10.6 fL (9.4-12.4); Monocytes # 0.5 K/mcL (0.0-1.3); Monocytes % 7.2 %; Neutrophils # 5.1 K/mcL (1.6-8.9); Platelet Count 169 K/mcL (140-400); Red Cell Distribution Width 13.2 % (11.5-14.5); Segmented Neutrophils % 78.5 %; White Blood Count 6.5 K/mcL (4.3-11.1)
[2019-12-07] MEDS ORDERED: DilTIAZem 50 MG/50 ML IV.SOLN IVC SCH (13:45)
[2019-12-07 13:53] LABS: Troponin I 0.14 ng/mL (< 0.04)
[2019-12-07 14:10] LABS: Calcium 9.6 mg/dL (8.6-10.3)
[2019-12-07 14:28] LABS: Magnesium 2.1 mg/dL (1.6-2.6)
[2019-12-07 14:45] LABS: Bacteria,Urine Few per hpf (None-Few); Bilirubin,Urine Negative (Negative); Blood,Urine Large (Negative); Clarity,Urine Turbid (Clear); Color,Urine Yellow (Yellow); Glucose,Urine (UA) 150 mg/dL (Normal); Granular Casts,Urine Moderate per lpf (None Seen); Hyaline Casts,Urine Many per lpf (None Seen); Ketones,Urine Trace mg/dL (Negative); Leukocyte Esterase,Urine Small (Negative); Mucus,Urine Many per lpf (None-Few); Nitrite,Urine Negative (Negative); Protein,Urine 100 mg/dL (Neg-Trace); RBC,Urine TNTC per hpf (0-3); Renal Epithelial Cells,Urine Moderate per hpf (None-Few); Specific Gravity,Urine 1.028 (1.010-1.025); Squamous Epithelial Cell,Urine Moderate per hpf (None-Few); Transitional Epi Cells,Urine Few per hpf (None-Few); Urobilinogen,Urine Normal (Normal); WBC,Urine 30-50 per hpf (0-3)
[2019-12-07] MEDS ORDERED: cefTRIAXone 1,000 MG in Water for inj. (sterile) 10 ML IVP ONE (15:44)
[2019-12-07] MEDS ORDERED: Ondansetron ODT 4 MG TAB.RAPDIS SL PRN (16:31)
[2019-12-07] MEDS ORDERED: Naloxone 0.4 MG/ML INJ IVP PRN (16:31)
[2019-12-07] MEDS ORDERED: *HR* LORazepam 0.5 MG TABLET PO PRN (16:36)
[2019-12-07] MEDS ORDERED: Dextrose Gel 15 GM/37.5 ML TUBE PO PRN ×2 (17:18)
[2019-12-07] MEDS ORDERED: D5% in Water 1,000 ML IVC PRN (17:18)
[2019-12-07] MEDS ORDERED: *HR* Dextrose 50 % in Water (Vial) 50 ML VIAL IVP PRN (17:18)
[2019-12-07] MEDS: Aspirin Enteric Coated 81 MG Tablet PO SCH (18:28)
[2019-12-07] MEDS: Apixaban 5 MG TABLET PO SCH (21:31)
[2019-12-07] MEDS: Insulin LISPRO 300 UNITS/3 ML VIAL SQ SCH (21:59)
[2019-12-08 01:50] LABS: Hematocrit 33.6 % (35.3-44.9); Mean Corpuscular Volume 96.8 fL (83.0-100.0); Red Blood Count 3.47 M/mcL (3.82-4.97); Red Cell Distribution Width 13.3 % (11.5-14.5)
[2019-12-08 01:53] LABS: Basophils % 0.4 %; Eosinophils # 0.3 K/mcL (0.0-0.6); Eosinophils % 4.8 %; Hemoglobin 11.3 g/dL (11.5-15.4); Immature Granulocytes % 0.2 % (0-4); Immature Platelets 3.2 % (1.1-6.1); Lymphocytes # 1.2 K/mcL (0.6-4.6); Lymphocytes % 21.2 %; Mean Corpuscular HGB Conc 33.6 g/dL (31.6-35.5); Mean Corpuscular Hemoglobin 32.6 pg (28.0-33.3); Mean Platelet Volume 10.6 fL (9.4-12.4); Monocytes # 0.5 K/mcL (0.0-1.3); Monocytes % 9.2 %; Platelet Count 129 K/mcL (140-400); Segmented Neutrophils % 64.2 %; White Blood Count 5.7 K/mcL (4.3-11.1)
[2019-12-08 01:55] LABS: Neutrophils # 3.7 K/mcL (1.6-8.9)
[2019-12-08 02:02] LABS: BUN/Creatinine Ratio 31 (6-26); Blood Urea Nitrogen 25 mg/dL (8-23); Calcium 8.6 mg/dL (8.6-10.3); Carbon Dioxide 26 mEq/L (23-29); Chloride 105 mEq/L (98-107); Glucose 111 mg/dL (70-105); Osmolality,Calculated 289 (280-300); Potassium 4.2 mEq/L (3.5-5.1); Sodium 137 mEq/L (136-145); eGFR For African Americans > 60 (> 60); eGFR For Non-African Americans > 60 (> 60)
[2019-12-08] MEDS ORDERED: Acetaminophen 325 MG TABLET PO PRN (02:24)
[2019-12-08] MEDS: Aspirin Enteric Coated 81 MG Tablet PO SCH (08:04)
[2019-12-08] MEDS: Apixaban 5 MG TABLET PO SCH ×2 (08:04→21:50)
[2019-12-08] MEDS: Lactobacillus 1 EACH CAP.SPRINK PO SCH (08:04)
[2019-12-08] MEDS: Insulin LISPRO 300 UNITS/3 ML VIAL SQ SCH ×4 (08:05→21:50)
[2019-12-08] MEDS ORDERED: Perflutren Lipid Microsphere 1.3 ML in 0.9 % Sodium Chloride 8.7 ML IVP PRN (09:41)
[2019-12-08 11:01] LABS: Troponin I 0.16 ng/mL (< 0.04)
[2019-12-08 17:05] LABS: Albumin 3.5 g/dL (3.5-5.7); Albumin/Globulin Ratio 1.3 (1.1-2.2); Bilirubin,Direct 0.1 mg/dL (0.0-0.2); Bilirubin,Indirect 0.6 mg/dL (0.0-1.0); Bilirubin,Total 0.7 mg/dL (0.3-1.0); Globulin 2.7 g/dL (2.4-3.5); Total Protein 6.2 g/dL (6.4-8.9)
[2019-12-09] MEDS ORDERED: *HR* Metoprolol 5 MG/5 ML VIAL IVP ONE (00:05)
[2019-12-09] MEDS: DilTIAZem 50 MG/50 ML IV.SOLN IVC SCH ×2 (01:28→08:48)
[2019-12-09 04:09] LABS: Hematocrit 31.4 % (35.3-44.9); Hemoglobin 10.9 g/dL (11.5-15.4); Mean Corpuscular HGB Conc 34.7 g/dL (31.6-35.5); Mean Corpuscular Hemoglobin 32.8 pg (28.0-33.3); Mean Corpuscular Volume 94.6 fL (83.0-100.0); Mean Platelet Volume 10.9 fL (9.4-12.4); Platelet Count 147 K/mcL (140-400); Red Blood Count 3.32 M/mcL (3.82-4.97); Red Cell Distribution Width 13.3 % (11.5-14.5); White Blood Count 7.4 K/mcL (4.3-11.1)
[2019-12-09 04:34] LABS: BUN/Creatinine Ratio 26 (6-26); Blood Urea Nitrogen 18 mg/dL (8-23); Calcium 8.4 mg/dL (8.6-10.3); Carbon Dioxide 21 mEq/L (23-29); Chloride 101 mEq/L (98-107); Glucose 161 mg/dL (70-105); Osmolality,Calculated 279 (280-300); Potassium 4.5 mEq/L (3.5-5.1); Sodium 132 mEq/L (136-145); eGFR For African Americans > 60 (> 60); eGFR For Non-African Americans > 60 (> 60)
[2019-12-09] MEDS: Lactobacillus 1 EACH CAP.SPRINK PO SCH (07:50)
[2019-12-09] MEDS: Aspirin Enteric Coated 81 MG Tablet PO SCH (07:50)
[2019-12-09] MEDS: hydroCHLOROthiazide 25 MG TABLET PO SCH (07:50)
[2019-12-09] MEDS: Apixaban 5 MG TABLET PO SCH ×2 (07:50→19:46)
[2019-12-09] MEDS: Insulin LISPRO 300 UNITS/3 ML VIAL SQ SCH ×4 (07:51→22:12)
[2019-12-09] MEDS ORDERED: Metoprolol XL (24 HR) Succ 50 MG TAB.ER.24H PO SCH (09:00)
[2019-12-10] MEDS: DilTIAZem 50 MG/50 ML IV.SOLN IVC SCH (01:39)
[2019-12-10 02:31] LABS: Bilirubin,Urine Negative (Negative); Blood,Urine Small (Negative); Clarity,Urine Clear (Clear); Color,Urine Colorless (Yellow); Glucose,Urine (UA) Normal (Normal); Ketones,Urine Negative (Negative); Leukocyte Esterase,Urine Negative (Negative); Mucus,Urine Few per lpf (None-Few); Nitrite,Urine Negative (Negative); PH,Urine 5.5 pH Units (5.0-8.0); Protein,Urine Negative (Neg-Trace); RBC,Urine 0-3 per hpf (0-3); Squamous Epithelial Cell,Urine Few per hpf (None-Few); Urobilinogen,Urine Normal (Normal); WBC,Urine 0-3 per hpf (0-3)
[2019-12-10 05:54] LABS: Hematocrit 33.5 % (35.3-44.9); Hemoglobin 11.2 g/dL (11.5-15.4); Mean Corpuscular HGB Conc 33.4 g/dL (31.6-35.5); Mean Corpuscular Hemoglobin 31.5 pg (28.0-33.3); Mean Corpuscular Volume 94.4 fL (83.0-100.0); Mean Platelet Volume 10.2 fL (9.4-12.4); Platelet Count 143 K/mcL (140-400); Red Blood Count 3.55 M/mcL (3.82-4.97); Red Cell Distribution Width 13.2 % (11.5-14.5)
[2019-12-10 06:15] LABS: BUN/Creatinine Ratio 26 (6-26); Blood Urea Nitrogen 16 mg/dL (8-23); Calcium 9.1 mg/dL (8.6-10.3); Carbon Dioxide 27 mEq/L (23-29); Chloride 99 mEq/L (98-107); Glucose 146 mg/dL (70-105); Osmolality,Calculated 280 (280-300); Potassium 3.5 mEq/L (3.5-5.1); Sodium 133 mEq/L (136-145); eGFR For African Americans > 60 (> 60); eGFR For Non-African Americans > 60 (> 60)
[2019-12-10] MEDS: Insulin LISPRO 300 UNITS/3 ML VIAL SQ SCH ×4 (07:46→21:37)
[2019-12-10] MEDS: hydroCHLOROthiazide 25 MG TABLET PO SCH (07:47)
[2019-12-10] MEDS: Apixaban 5 MG TABLET PO SCH ×2 (07:47→21:37)
[2019-12-10] MEDS: Aspirin Enteric Coated 81 MG Tablet PO SCH (07:47)
[2019-12-10] MEDS ORDERED: *HR* Metoprolol 5 MG/5 ML VIAL IVP ONE ×2 (08:08→12:07)
[2019-12-10] MEDS: Metoprolol 100 MG TABLET PO SCH ×2 (08:17→21:36)
[2019-12-10] MEDS ORDERED: 0.9 % Sodium Chloride 1,000 ML IVC ONE (12:41)
[2019-12-10] MEDS ORDERED: 0.9 % Sodium Chloride 1,000 ML ONE (13:00)
[2019-12-11] MEDS: Insulin LISPRO 300 UNITS/3 ML VIAL SQ SCH ×4 (07:13→22:46)
[2019-12-11 07:16] LABS: Hematocrit 32.6 % (35.3-44.9); Hemoglobin 11.2 g/dL (11.5-15.4); Mean Corpuscular HGB Conc 34.4 g/dL (31.6-35.5); Mean Corpuscular Hemoglobin 32.6 pg (28.0-33.3); Mean Corpuscular Volume 94.8 fL (83.0-100.0); Mean Platelet Volume 10.3 fL (9.4-12.4); Platelet Count 183 K/mcL (140-400); Red Blood Count 3.44 M/mcL (3.82-4.97); Red Cell Distribution Width 13.3 % (11.5-14.5); White Blood Count 7.7 K/mcL (4.3-11.1)
[2019-12-11 07:31] LABS: BUN/Creatinine Ratio 20 (6-26); Blood Urea Nitrogen 14 mg/dL (8-23); Calcium 9.2 mg/dL (8.6-10.3); Carbon Dioxide 28 mEq/L (23-29); Chloride 98 mEq/L (98-107); Glucose 135 mg/dL (70-105); Osmolality,Calculated 283 (280-300); Potassium 3.3 mEq/L (3.5-5.1); Sodium 135 mEq/L (136-145); eGFR For African Americans > 60 (> 60); eGFR For Non-African Americans > 60 (> 60)
[2019-12-11] MEDS: Aspirin Enteric Coated 81 MG Tablet PO SCH (09:40)
[2019-12-11] MEDS: Apixaban 5 MG TABLET PO SCH ×2 (09:40→20:30)
[2019-12-11] MEDS ORDERED: DilTIAZem CD (24hr) 120 MG CAP.ER.24H PO SCH (12:30)
[2019-12-11] MEDS ORDERED: 0.9 % Sodium Chloride 1,000 ML IVC ONE (14:13)
[2019-12-11] MEDS: Sulfamethoxazole/Trimeth DS 1 EACH TABLET PO SCH (20:30)
[2019-12-12] MEDS: Insulin LISPRO 300 UNITS/3 ML VIAL SQ SCH (07:33)
[2019-12-12] MEDS: Aspirin Enteric Coated 81 MG Tablet PO SCH (08:07)
[2019-12-12] MEDS: Apixaban 5 MG TABLET PO SCH (08:08)
[2019-12-12] MEDS: Sulfamethoxazole/Trimeth DS 1 EACH TABLET PO SCH (08:08)
[2019-12-12] MEDS ORDERED: DilTIAZem CD (24hr) 120 MG CAP.ER.24H PO SCH (09:00)
[2019-12-12 09:45] VITALS: BP 106/61
== END 2019-12-12 10:46 | disposition home or self-care (01) | DRG 872 ==
LOC: 2ANU 12:26 → EMEROOARM 12:26 → SUATTDRO 16:01 → 2ANU 16:23
PROVIDERS: ADMIT Family Medicine; ATTEND Family Medicine